=== PATIENT | male | born 1960 | race Caucasian/White ===

== ENCOUNTER 2024-01-03 07:42 | Inpatient (IN) ==
--- NOTE | 2023-12-23 12:36 | Anesthesiology Consultation ---
Date of Service December 23, 2023 Assessment & Plan (1) Encounter for pre-operative examination: Plan - check BSG am DOS. - Per supervisor agency appointments on 12/23/23: No known infectious disease contacts, current infectious disease symptoms in past 10 days or COVID positive test result in the past 30 days. Chart Review Chart Review: Acceptable Risk for Surgery and Patient NOT seen in Pre Admission Testing History Surgery Operation Date: 01/04/24 07:45 Proposed Procedures p L3-L5 Decompression and Fusion, Possible L2-L3; Hardware Removal L5-S1, With Spinal Cord Monitoring - Mario Briceño DO Height/Weight Height: 5 ft 9 in Weight: 92.079 kg Allergies Allergy/AdvReac Type Severity Reaction Status Date / Time codeine AdvReac Mild nausea Verified 12/23/23 11:54 metformin AdvReac Mild Diarrhea Verified 12/23/23 11:54 Medications Home Medications Medication Instructions Recorded Confirmed Last Taken atorvastatin 20 mg tablet 20 mg PO QA 06/23/22 12/23/23 10/18/23 empagliflozin 10 mg tablet 10 mg PO QA 06/23/22 12/23/23 10/17/23 (Jardiance) lisinopril 20 mg tablet 20 mg PO QA 06/23/22 12/23/23 10/18/23 omeprazole 20 mg tablet,delayed 20 mg PO QA 06/23/22 12/23/23 10/18/23 release sertraline 200 mg capsule 200 mg PO QA 06/23/22 12/23/23 10/19/23 09:00 turmeric 400 mg capsule 400 mg PO QA 06/23/22 12/23/23 10/18/23 insulin glargine U-300 conc 300 90 unit subcut QA 09/23/23 12/23/23 10/19/23 unit/mL (3 mL) subcutaneous pen (Toujeo Max U-300 SoloStar) tamsulosin 0.4 mg capsule (Flomax) 0.4 mg PO QPM 09/28/23 12/23/23 10/18/23 18:00 trazodone 50 mg tablet 50 mg PO HS PRN Sleep 12/23/23 12/23/23 Unknown Past Medical History Medical History (Updated 12/23/23 @ 12:32 by Abbi Bey PA-C) Anxiety mild BPH (benign prostatic hyperplasia) Chronic back pain DM type 2 (diabetes mellitus, type 2) IDDM GERD (gastroesophageal reflux disease) HLD (hyperlipidemia) Hypertension Nocturia Osteoarthritis Past Family History Family History Father Prostate cancer Diabetes Brother Prostate cancer Diabetes Other No family history of adverse response to anesthesia Past Surgical History Surgical History H/O bilateral inguinal hernia repair (10/20/23) Robotic Assisted Bilateral Laparoscopic Inguinal Hernia Repair(Bilateral) - Adelfo Read, , FACS History of back surgery History of colonoscopy History of esophagogastroduodenoscopy (EGD) History of surgical amputation of finger of left hand History of tonsillectomy Hx of arthroscopy of shoulder left Social History Smoking Status: Former smoker tobacco type: cigarettes Smoking cigarettes per day: occasional smoker -- once per month Do You Dip or Chew Tobacco: Yes (quit 5-6 years ago; advised) Smoking End Date: "years ago" Hx Alcohol Use: Yes alcohol intake frequency: holidays/special occasions only Hx Substance Use: No substance use type: does not use Lab Results Anesthesia Preop Results Results Anesthesia Widget: WBC 5.59 K/ul (4.8-10.8) 12/22/23 Hgb 14.0 g/dl (14.0-18.0) 12/22/23 Hct 44.1 % (42.0-52.0) 12/22/23 Plt 208 K/uL (130-400) 12/22/23 Na 141 mmol/L (136-145) 12/22/23 K 4.0 mmol/L (3.5-5.1) 12/22/23 Cl 109 mmol/L (98-107) H 12/22/23 CO2 25 mmol/L (21-32) 12/22/23 BUN 17 mg/dl (6-23) 12/22/23 Creat 0.92 mg/dl (0.6-1.4) 12/22/23 Glucose Level 97 mg/dl (70-99(Fasting)) 12/22/23 PT 10.5 Seconds (9.0-12.0) 12/22/23 PTT 28 Seconds (21-31) 12/22/23 INR 1.0 (0.9-1.1) 12/22/23 Urine Color Yellow 12/22/23 Urine Appearance Clear (Clear) 12/22/23 Urine pH 5.5 (4.5-7.5) 12/22/23 Urine Specific [place] 1.035 (1.000-1.030) H 12/22/23 Urine Protein Negative (Negative) 12/22/23 Urine Glucose (UA) 2+ (Negative) H 12/22/23 Urine Ketones Trace (Negative) H 12/22/23 Urine Blood Negative (Negative) 12/22/23 Urine Nitrite Negative (Negative) 12/22/23 Urine Bilirubin Negative (Negative) 12/22/23 Urine Urobilinogen Negative (Negative) 12/22/23 Urine Leukocyte Esterase Negative (Negative) 12/22/23 Blood Type A Positive 12/22/23 Antibody Screen NEGATIVE 12/22/23 Testing Electrocardiogram Date: 10/11/23 Sinus bradycardia, rate 59 bpm Chest X-Ray Date: 10/11/23 No acute chest disease.
[2024-01-03] MEDS: ACETAMINOPHEN 500 MG TAB PO SCH (08:14)
[2024-01-03] MEDS: GABAPENTIN 600 MG DOSE PO SCH (08:14)
[2024-01-03] MEDS: CeleBREX 200 MG CAP PO SCH (08:14)
[2024-01-03] MEDS: LR 60ML/HR IV SCH (08:15)
[2024-01-03] MEDS: LR 15ML/HR IV SCH (08:30)
[2024-01-03] MEDS ORDERED: PROPOFOL IV EMULSION 10 MG/ML 20 ML VIAL IV ONE (08:45)
[2024-01-03] MEDS ORDERED: ROCURONIUM BROMIDE 10 MG/ML 5 ML VIAL IV ONE (08:47)
[2024-01-03] MEDS ORDERED: LIDOCAINE 2% 2 ML VIAL/AMP(20MG/ML) INFIL ONE ×2 (08:47)
[2024-01-03] MEDS ORDERED: fentaNYL citrate PF 100 MCG/2 ML VIAL ONE ×2 (08:49→12:31)
[2024-01-03] MEDS ORDERED: MIDAZOLAM HCL 1 MG/ML 2ML VIAL ONE (08:50)
[2024-01-03] MEDS ORDERED: DEXAMETHASONE SOD INJ 4 MG/ML VIAL ONE (08:51)
[2024-01-03] MEDS ORDERED: ONDANSETRON INJ 2 MG/ML 2 ML VIAL ONE ×3 (08:51→12:14)
[2024-01-03] MEDS ORDERED: ATROPINE SULFATE 0.1 MG/ML 10ML SYR IV PRN (09:00)
[2024-01-03] MEDS ORDERED: ONDANSETRON INJ 2 MG/ML 2 ML VIAL IV PRN ×2 (09:00→15:17)
[2024-01-03] MEDS ORDERED: HYDROmorphone INJ 1 MG/ML SYRINGE IV PRN (09:00)
[2024-01-03] MEDS ORDERED: PROMETHAZINE HCL 6.25 MG in SODIUM CHLORIDE 0.9% 50 ML IV PRN (09:00)
[2024-01-03] MEDS ORDERED: ePHEDrine sulfate 50 MG/ML AMP IV PRN (09:00)
--- NOTE | 2024-01-03 09:01 | History & Physical Bridge Note ---
Date of Service January 03, 2024 History & Physical Bridge Note I have examined the patient, reviewed the History & Physical and in the interval since the performance of the History & Physical I have noted the following changes of clinical significance: no changes noted
--- NOTE | 2024-01-03 09:02 | History & Physical Report ---
Date of Service January 03, 2024 Assessment & Plan (1) Neurogenic claudication due to lumbar spinal stenosis: Plan: L3-L5 decompression and fusion, possible L2-L3, hardware removal L5-S1 History of Present Illness Chief Complaint: Back and leg pain Primary Care Provider: Jerry Cleveland MD This is a 63-year-old male who presents with chronic persistent back and leg pain after failing course of nonoperative care is here for surgical intervention. Allergies Allergy/AdvReac Type Severity Reaction Status Date / Time codeine AdvReac Mild nausea Verified 01/03/24 08:10 metformin AdvReac Mild Diarrhea Verified 01/03/24 08:10 Home Medications Medication Instructions Recorded Confirmed Type atorvastatin 20 mg tablet 20 mg PO QAM 06/23/22 01/03/24 History empagliflozin 10 mg tablet 10 mg PO QAM 06/23/22 01/03/24 History (Jardiance) lisinopril 20 mg tablet 20 mg PO QAM 06/23/22 01/03/24 History omeprazole 20 mg tablet,delayed 20 mg PO QAM 06/23/22 01/03/24 History release sertraline 200 mg capsule 200 mg PO QAM 06/23/22 01/03/24 History turmeric 400 mg capsule 400 mg PO QAM 06/23/22 01/03/24 History insulin glargine U-300 conc 300 90 unit subcut QAM 09/23/23 01/03/24 History unit/mL (3 mL) subcutaneous pen (Toujeo Max U-300 SoloStar) tamsulosin 0.4 mg capsule (Flomax) 0.4 mg PO QPM 09/28/23 01/03/24 History trazodone 50 mg tablet 50 mg PO HS PRN Sleep 12/23/23 01/03/24 History Past Med/Surg History Problem List (Updated 01/03/24 @ 09:02 by Mario Briceño DO) Neurogenic claudication due to lumbar spinal stenosis Bilateral inguinal hernia History of back problems Arthritis Right inguinal hernia Left inguinal hernia Right testicular pain entered into EMR 09/23/23 and last edited 09/28/23 Partial tear of rotator cuff Encounter for pre-operative examination Chronic back pain HTN (hypertension) Herniated nucleus pulposus, lumbar (Acute) Diabetes (Chronic) Medical History (Updated 01/03/24 @ 09:02 by Mario Briceño DO) Hypertension Chronic back pain Nocturia BPH (benign prostatic hyperplasia) Osteoarthritis Anxiety mild GERD (gastroesophageal reflux disease) DM type 2 (diabetes mellitus, type 2) IDDM HLD (hyperlipidemia) Surgical History H/O bilateral inguinal hernia repair (10/20/23) Robotic Assisted Bilateral Laparoscopic Inguinal Hernia Repair(Bilateral) - Adelfo Read DO, FACS Hx of arthroscopy of shoulder left History of tonsillectomy History of surgical amputation of finger of left hand History of back surgery History of esophagogastroduodenoscopy (EGD) History of colonoscopy Family History Father Prostate cancer Diabetes Brother Prostate cancer Diabetes Other No family history of adverse response to anesthesia Social History Smoking Status: Former smoker Tobacco Type: Cigarettes Cigarettes Per Day: occasional smoker -- once per month; Smoking End Date: "years ago"; Second Hand Exposure: No; Do You Dip or Chew Tobacco: Yes (quit 5-6 years ago; advised); Tobacco Cessation Education Requested by Patient: No Hx Alcohol Use: Yes Hx Substance Use: No Preferred Language: Lithuanian Communication Ability: Effective 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
[2024-01-03] MEDS: BUPIVACAINE/EPINEPHRINE 0.5% MPF 1:200,000 30 ML VIAL ONE (10:30)
[2024-01-03] MEDS: ceFAZolin 2000MG 2,000 MG/15 ML SYR IV SCH ×2 (10:30→18:00)
[2024-01-03] MEDS: ceFAZolin 330 MG/ML 1 GM VIAL ONE (10:31)
[2024-01-03] MEDS ORDERED: SUGAMMADEX SODIUM 200 MG/2 ML VIAL IV ONE ×2 (12:14→12:25)
--- NOTE | 2024-01-03 12:32 | Operative Report ---
Post Operative Report Pre & Post Diagnosis Operation Date: 01/03/24 09:35 Pre-Op Diagnosis: Lumbar spinal stenosis with neurogenic claudication Post-Op Diagnosis: Same I identified the patient and participated in the time-out.: Yes Procedure Operation Date: 01/03/24 09:35 Actual Procedures #1 removal of posterior instrumentation L5-S1. #2 exploration of fusion L5-S1. #3 lumbar decompression bilateral medial facetectomies and foraminotomies L2-3, L3-4 and L4-5. #4 posterior spinal fusion L2-L5. #5 placed posterior segmental instrumentation L2-L5. #6 interbody fusion L2-L3, L3-L4 and L4-L5. #7 placement of Spira 10 x 26 mm at L2-L3, 9 x 26 mm at L3-L4 and 13 x 26 mm x 2 at L4-L5. #8 placement locally harvested morselized autograft and posterior gutters. #9 placement infuse collagen sponge combined with Koros bone graft in the posterior lateral gutters and Morpheus bone graft interbody space. Surgeon Mario Briceño, Apron Man Josephine Lopez Estimated Blood Loss 550 Findings Consistent with Post-Op Diagnosis Specimens None Indications This is a 63-year-old male presents problems diagnosis of failed course of nonoperative care is here for surgical invention. Description of Procedure Patient was met with identified informed consent obtained. Patient was then taken to the operative suite underwent patient placed in a prone position on the Sarkis table on top of the David frame. All bony promises well-padded eyes inspected to ensure no external precipice spinal. This point the lumbar spine was prepped and draped in normal sterile fashion. Sharp dissection with the assistance of Bovie cautery was performed down to and exposing the lamina and transverse processes of L2-L3-L4 and the instrumentation L5 and S1 levels bilaterally. Numbers proceeded to move the end caps and rods at L5-S1 bilaterally. Was able to successfully move the L5 screws but unable to move the S1 screws second and bony overgrowth. Fusion mass was explored and noted to be mature and intact. Then performed a complete laminectomy of L4 including bilateral medial facetectomies and foraminotomies followed by complete laminectomy of L3 with bilateral medial facetectomies and foraminotomies and lastly laminectomy of L2 with bilateral medial facetectomies and foraminotomies addressing severe lateral recess and foraminal stenosis at all levels. Pedicle screws then placed at L2-L3 L4-5 bilaterally with assistance of fluoroscopy in the process son placed. By way of transforaminal approach on the left discectomy of L4 and L5 was performed endplates guarded to subcortical and bone and a 13 x 26 mm Spira cage filled with Morpheus bone graft tapped in position. Then proceeded to the right transforaminal region at L4-5. Again discectomy performed endplates guarded to subcortical bleeding bone and a second 13 x 26 mm spiral cage filled with Morpheus bone graft tapped in position. Then proceeded to L3-L4 by way of transforaminal approach and right a discectomy of L3-L4 was performed endplates guarded to subcortical and bone and a 9 x 26 mm spiral cage filled with Morpheus bone graft tapped in position. Lastly approached L2-L3 and by way of transforaminal approach on the right a complete discectomy of L2-L3 was performed endplates guarded to subcortical mean bone and 10 x 26 mm spiral cage filled with Morpheus bone graft tapped in position. The rods were then locked in final position bilaterally. The transverse processes of L2 L3-L4-L5 burred to subcortical bleeding bone. Infuse collagen sponge combined with Koros bone graft and locally harvested morselized autograft was placed in the posterior gutters. 15 round HAILEE drain inserted. The incision was then closed with 1 Vicryl in the fascia 2-0 Vicryl subcutaneously and 4 Monocryl for final skin closure. Steri-Strips sterile dressing placed. Patient waken taken to PACU in stable condition. Please note spinal cord monitoring utilized at the procedure no changes noted. Janet Lopez was present at the entire surgery and while the patient positioning complex portion of the surgery and final skin closure. I attest to the content of the Intraoperative Record and any orders documented therein. Any exceptions are noted below.
--- NOTE | 2024-01-03 13:20 | Anesthesiology Progress Note ---
Date of Service January 03, 2024 Anesthesia Post Procedure Vital Signs Vital Signs: Temp Pulse Pulse Resp BP Pulse Ox O2 Del Method 01/03/24 13:10 100 H 21 108/75 94 Room Air 01/03/24 13:00 98 H 18 122/81 95 Room Air 01/03/24 12:50 92 H 15 114/94 99 Oxymask 01/03/24 12:43 36.7 C 88 16 124/74 99 Oxymask 01/03/24 08:05 37 C 65 20 147/80 H 97 Room Air O2 Flow Rate 01/03/24 13:10 01/03/24 13:00 01/03/24 12:50 7 01/03/24 12:43 7 01/03/24 08:05 Pain Intensity Right Lower Back: Pain Intensity: 8 Transfer of Care Handoff Completed per policy Notes Mental Status: alert / awake / arousable and participated in evaluation Patient Amnestic to Procedure: Yes Nausea / Vomiting: adequately controlled Pain: adequately controlled Airway Patency, RR, SpO2: stable & adequate BP & HR: stable & adequate Hydration State: stable & adequate Anesthetic Complications: no major complications apparent and Pt Satisfied with anesthetic care
--- NOTE | 2024-01-03 13:35 | Fluoroscopy Report ---
[place] lumbar spine 2-3V CLINICAL HISTORY: L3-L5 DECOMP/FUSION COMPARISON STUDY: Lumbar spine radiographs May 16, 2015. Lumbar spine MRI July 07, 2023. FLUOROSCOPY TIME: 24.3 seconds. FLUOROSCOPIC IMAGES: 2 FINDINGS: Fluoroscopy was provided removal of posterior instrumentation at L5-S1. Posterior decompres nida was noted with interval L2-L3, L3-L4 and L4-L5 discectomies with interbody spacer placement. Evelio ateral pedicle screw fusion extends from L2 through S1. IMPRESSION: Fluoroscopy provided during interval decompression and fusion, as described above. ACT 112: Negative or not required by law. Electronically signed by: Thang Oakes M.D. 01/03/2024 1:34 PM
[2024-01-03] MEDS: fentaNYL citrate PF 100 MCG/2 ML VIAL IV PRN (13:58)
[2024-01-03] MEDS ORDERED: NALOXONE HCL 0.4 MG/1 ML VIAL/CARP IV PRN (15:17)
[2024-01-03] MEDS ORDERED: bisacodyL 10 MG SUPP PR PRN (15:17)
[2024-01-03] MEDS ORDERED: PHARMACY GLYCEMIC MGMT CONSULT PRN (15:17)
[2024-01-03] MEDS ORDERED: ACETAMINOPHEN 500 MG TAB PO PRN (15:17)
[2024-01-03] MEDS ORDERED: METOCLOPRAMIDE HCL INJ 5 MG/ML 2 ML VIAL IV PRN (15:17)
[2024-01-03] MEDS ORDERED: MAGNESIUM HYDROXIDE SUSP 30 ML UDC PO PRN (15:17)
[2024-01-03] MEDS ORDERED: LORazepam 0.5 MG TAB PO PRN (15:17)
[2024-01-03] MEDS ORDERED: DO NOT ADMINISTER FLU VACCINE PRN (15:17)
[2024-01-03] MEDS ORDERED: FAMOTIDINE 20 MG TAB PO PRN (15:17)
[2024-01-03] MEDS ORDERED: LORazepam 0.5 MG in SYRINGE 0.25 ML IV PRN (15:17)
[2024-01-03] MEDS ORDERED: hydrOXYzine HCl 25 MG TAB PO PRN (15:17)
[2024-01-03] MEDS ORDERED: ACETAMINOPHEN 1,000 MG/100 ML VIAL IV PRN (15:17)
[2024-01-03] MEDS ORDERED: HYDROmorphone INJ 0.5 MG/0.5 ML SYR IV PRN (15:17)
[2024-01-03] MEDS ORDERED: diphenhydrAMINE Capsule 25 MG CAP PO PRN (15:17)
[2024-01-03] MEDS ORDERED: ALUMINUM/MAGNESIUM SUSP 30 ML UDC PO PRN (15:17)
[2024-01-03] MEDS ORDERED: DO NOT ADMINISTER PNEUMOCOCCAL VACCINE PRN (15:17)
[2024-01-03] MEDS ORDERED: PROMETHAZINE HCL 12.5 MG in SODIUM CHLORIDE 0.9% 50 ML IV PRN (15:17)
[2024-01-03] MEDS ORDERED: traMADol HCL 50 MG TABLET PO PRN (15:17)
[2024-01-03] MEDS ORDERED: traZODone HCL 50 MG TAB PO PRN (15:17)
[2024-01-03] MEDS ORDERED: SOD PHOSPHATE/SOD BIPHOSPHATE ENEMA 132 ML BTL PR PRN (15:17)
[2024-01-03] MEDS ORDERED: ONDANSETRON 4 MG OD TAB PO PRN (15:17)
[2024-01-03] MEDS: FLOSEAL HEMOSTATIC MATRIX 10ML TOP ONE (15:18)
[2024-01-03] MEDS: SODIUM CHLORIDE 0.9% 1,000 ML IV SCH (15:29)
[2024-01-03] MEDS ORDERED: GLUCOSE 40% GEL 15 GM TUBE PO PRN (15:45)
[2024-01-03] MEDS ORDERED: GLUCAGON FOR INJ 1 MG VIAL IM PRN (15:45)
[2024-01-03] MEDS ORDERED: GLUCOSE 10 TAB/TUBE PO PRN (15:45)
[2024-01-03] MEDS ORDERED: CARBOHYDRATES FOR HYPOGLYCEMIA PO PRN (15:45)
[2024-01-03] MEDS ORDERED: DEXTROSE 50% 50 ML SYRINGE IV PRN (15:45)
[2024-01-03] MEDS: HYDROmorphone INJ 1 MG/ML SYRINGE IV PRN (16:03)
--- NOTE | 2024-01-03 17:32 | Hospitalist Consultation ---
Date of Consultation January 03, 2024 Assessment & Plan (1) Neurogenic claudication due to lumbar spinal stenosis: Patient underwent removal of posterior instrumentation L5-S1, exploration of fusion L5-S1, lumbar decompression b/l medical facetectomies & foraminotomies L2-3, L3-4, L4-5, posterior spinal fusion L2-L5, placement of posterior segmental instrumentation L2-L5, interbody fusion L2-L3, L3-L4, L4-L5, placement of Spira [id number], 9x26mm, at L3-L4 and 73x94tl x 2 at L4-L5. He is feeling well following surgery -Dilaudid Q3H prn; tramadol Q4h prn for pain -Wean off nasal cannula as tolerated to baseline of room air -Advance diet as tolerated -PT consult (2) HTN (hypertension): Chronic/Stable -Continue Lisinopril 20mg daily (3) DM type 2 (diabetes mellitus, type 2): Patient NPO majority of day and given clear liquid diet for dinner. -Advance diet to Type 2 Carb Consistent -Will check Hgb A1c -On Jardiance outpatient -Will resume Lantus 01/03 -SSI with goal of 110-140, Correction factor 20, Carb ratio 6 -BSG ACHS Plan Diet: type 2 diabetes/carb consistent Code status: full code Disposition: surgical services Chronic conditions: -Atorvastatin 20mg daily for hyperlipidemia -Pantoprazole 40mg daily for GERD -Sertraline 200mg daily for anxiety/depression -Tamsulosin 0.4mg daily for urinary symptoms Supervising Physician Co-Signing Physician Notes During face to face encounter, I obtained a history and physical examination, discussed plan of care with patient and answered any questions. I discussed plan of care with GIANCARLO Yancey. I reviewed above note and agree with it except for the following: Patient was consulted for medical management. Will resume home meds for hypertension. DVT prophylaxis per primary service. History of Present Illness Reason for Consultation: Patient was seen this evening at bedside with present. Patient reports to be feeling well following his surgery with Dr. Briceño earlier today. He reports no chest pain, shortness of breath, abdominal pain. Sharma catheter is in place. He reports no BM's since surgery yet. He is on 2L of nasal canal at time of encounter but feels he does not need this and it is causing irritation to his nose. He was on clear liquid diet at time of encounter and per nursing staff he is to advance as tolerated. Attending Physician: Mario Briceño DO History of Present Illness This is a 63 year old male with past medical history Allergies Allergy/AdvReac Type Severity Reaction Status Date / Time codeine AdvReac Mild nausea Verified 01/03/24 08:10 metformin AdvReac Mild Diarrhea Verified 01/03/24 08:10 Home Medications Medication Instructions Recorded Confirmed Type atorvastatin 20 mg tablet 20 mg PO QAM 06/23/22 01/03/24 History empagliflozin 10 mg tablet 10 mg PO QAM 06/23/22 01/03/24 History (Jardiance) lisinopril 20 mg tablet 20 mg PO QAM 06/23/22 01/03/24 History omeprazole 20 mg tablet,delayed 20 mg PO QAM 06/23/22 01/03/24 History release sertraline 200 mg capsule 200 mg PO QAM 06/23/22 01/03/24 History turmeric 400 mg capsule 400 mg PO QAM 06/23/22 01/03/24 History insulin glargine U-300 conc 300 90 unit subcut QAM 09/23/23 01/03/24 History unit/mL (3 mL) subcutaneous pen (Toujeo Max U-300 SoloStar) tamsulosin 0.4 mg capsule (Flomax) 0.4 mg PO QPM 09/28/23 01/03/24 History trazodone 50 mg tablet 50 mg PO HS PRN Sleep 12/23/23 01/03/24 History oxycodone 5 mg tablet 5 mg PO Q6H PRN pain #30 tabs 01/04/24 Rx tramadol 50 mg tablet 50 mg PO Q6H PRN pain, moderate 01/04/24 Rx #30 tabs Patient History Medical History (Updated 01/03/24 @ 17:56 by Paula Yancey PA-C) Hypertension Chronic back pain Nocturia BPH (benign prostatic hyperplasia) Osteoarthritis Anxiety mild GERD (gastroesophageal reflux disease) DM type 2 (diabetes mellitus, type 2) IDDM HLD (hyperlipidemia) Surgical History H/O bilateral inguinal hernia repair (10/20/23) Robotic Assisted Bilateral Laparoscopic Inguinal Hernia Repair(Bilateral) - Adelfo Read, DO, FACS Hx of arthroscopy of shoulder left History of tonsillectomy History of surgical amputation of finger of left hand History of back surgery History of esophagogastroduodenoscopy (EGD) History of colonoscopy Family History Father Prostate cancer Diabetes Brother Prostate cancer Diabetes Other No family history of adverse response to anesthesia Social History Smoking Status: Former smoker Tobacco Type: Cigarettes Cigarettes Per Day: occasional smoker -- once per month; Smoking End Date: "years ago"; Second Hand Exposure: No; Do You Dip or Chew Tobacco: Yes (quit 5-6 years ago; advised); Tobacco Cessation Education Requested by Patient: No Hx Alcohol Use: Yes Hx Substance Use: No Preferred Language: Sami Communication Ability: Effective 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 Beliefs That Will Affect Care: None marital status: Current Living Situation: Spouse How many Children do You have: 3 Other Information That Helps Us Care for You: No Feels Safe at Home: Yes Safety Concerns: Feels Safe At This Time Diet: diabetic during the past year weight has: remained stable Assistive Devices: None Review of Systems Constitutional: no fever Eyes: no blind spots Ear, Nose, Mouth, Throat: no ear pain Respiratory: no cough Cardiovascular: no chest pain Gastrointestinal: no abdominal pain Genitourinary: no dysuria Integumentary: no acne Neurologic: no gait abnormality Psychiatric: no behavioral changes Endocrine: no fatigue Hematologic / Lymphatic: no easy bleeding Allergy / Immunological: no GI upset with certain foods Physical Exam Constitutional: WD/WN, vitals as above Eyes: PERRL, conjunctivae normal, anicteric sclerae Respiratory: normal respiratory effort, lungs clear to auscultation Cardiovascular: RRR, no murmur, no edema Gastrointestinal (Abdomen): normal bowel sounds, soft, nontender, no hepatosplenomegaly Neurologic: PERRL, EOMI, accommodation nl, no face palsy, no dysarthria Psychiatric: A+Ox3, euthymic affect Results & Data Results & Data Vital Signs (Past 12 Hours) Vital Signs Temp Pulse Pulse Resp BP Pulse Ox O2 Del Method 01/03/24 16:42 78 18 103/68 95 Nasal Cannula 01/03/24 15:40 79 18 125/74 96 Room Air 01/03/24 15:10 36.5 C 69 18 120/77 97 Nasal Cannula 01/03/24 14:40 36.5 C 84 16 112/68 93 Nasal Cannula 01/03/24 14:40 Nasal Cannula 01/03/24 14:15 79 12 108/59 L 93 Nasal Cannula 01/03/24 14:00 80 18 116/66 98 Nasal Cannula 01/03/24 13:45 36.4 C L 82 13 108/59 L 94 Nasal Cannula 01/03/24 13:30 86 12 112/60 92 Room Air 01/03/24 13:20 92 H 17 113/65 93 Room Air 01/03/24 13:10 100 H 21 108/75 94 Room Air 01/03/24 13:00 98 H 18 122/81 95 Room Air 01/03/24 12:50 92 H 15 114/94 99 Oxymask 01/03/24 12:43 36.7 C 88 16 124/74 99 Oxymask 01/03/24 08:05 37 C 65 20 147/80 H 97 Room Air O2 Flow Rate 01/03/24 16:42 2 01/03/24 15:40 01/03/24 15:10 2 01/03/24 14:40 2 01/03/24 14:40 2 01/03/24 14:15 2 01/03/24 14:00 2 01/03/24 13:45 2 01/03/24 13:30 01/03/24 13:20 01/03/24 13:10 01/03/24 13:00 01/03/24 12:50 7 01/03/24 12:43 7 01/03/24 08:05 Diagnostic Findings Lumbar Spine X-Ray 01/03/24 00:00 IMPRESSION: Fluoroscopy provided during interval decompression and fusion, as described above. Electronically signed by: Thang Oakes M.D. 01/03/2024 1:34 PM PG Care Time/CCT Total # of Minutes Spent Total Time Spent with Patient: Total time spent is greater than 50% in coordination of care (as documented) at patient's floor/unit and/or counseling patient: Coding Level of Care Code 80621 IN/OBS CONSULT LVL 3,45M Diagnoses Neurogenic claudication due to lumbar spinal stenosis M48.062 Primary hypertension I10 Hypertension type: primary hypertension Type 2 diabetes mellitus without complication, with long-term current use of insulin E11.9; Z79.4 Diabetes mellitus complication status: without complication Diabetes mellitus assisted insulin use: with assisted use (2) HTN (hypertension) Hypertension type: primary hypertension Qualified Code(s): I10 - Essential (primary) hypertension (3) DM type 2 (diabetes mellitus, type 2) Diabetes mellitus complication status: without complication Diabetes mellitus assisted insulin use: with assisted use Qualified Code(s): E11.9 - Type 2 diabetes mellitus without complications; 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
[2024-01-03] MEDS: INSULIN ASPART PER UNIT CHARGE SC SCH ×2 (17:37→23:42)
[2024-01-03] MEDS: TAMSULOSIN HCL 0.4 MG CAP PO SCH (20:24)
[2024-01-03] MEDS: DOCUSATE SODIUM/SENNA 50/8.6MG TAB PO SCH (20:24)
[2024-01-03] MEDS: LANTUS PER UNIT CHARGE SC SCH (21:15)
[2024-01-04] MEDS: POLYETHYLENE (MIRALAX) 17 GM PACK PO SCH (05:48)
[2024-01-04 07:21] LABS: Basophils # (auto) 0.02 K/uL (0.00-0.20); Basophils % (auto) 0.2 %; Eosinophils # (auto) 0.02 K/uL (0.00-0.50); Eosinophils % (auto) 0.2 %; Hematocrit (blood only) 35.1 % (42.0-52.0); Hemoglobin 11.3 g/dl (14.0-18.0); Immature Granulocytes # (auto) 0.05 K/uL (0.01-0.20); Immature Granulocytes % (auto) 0.4 %; Lymphocytes # (auto) 0.87 K/uL (1.20-3.40); Lymphocytes % (auto) 7.2 %; Mean Corpuscular Hemoglobin 27.7 pg (25.0-34.0); Mean Corpuscular Hgb Conc 32.2 g/dL (32.0-36.0); Mean Platelet Volume 9.3 fL (9.4-12.4); Monocytes # (auto) 1.24 K/uL (0.11-0.59); Monocytes % (auto) 10.3 %; Neutrophils # (auto) 9.81 K/uL (1.40-6.50); Neutrophils % (auto) 81.7 %; Platelet Count 218 K/uL (130-400); RDW Coefficient of Variation 13.4 % (11.5-14.5); RDW Standard Deviation 42.1 fL (36.4-46.3); Red Blood Count 4.08 M/uL (4.70-6.10); White Blood Count 12.01 K/ul (4.8-10.8)
[2024-01-04 07:33] LABS: BUN Creatinine Ratio 17.7 (10-20); Calcium 8.6 mg/dl (8.6-10.3); Creatinine Clr Calc Pharmacy 105.9 ml/min; Est GFR (African American) 110.8 ml/min; Est GFR (Non-African American) 95.6 ml/min; Potassium 4.1 mmol/L (3.5-5.1)
[2024-01-04] MEDS: dexAMETHasone 6 MG in SYRINGE 0 ML IV SCH (07:49)
[2024-01-04] MEDS: lisinopril 20 MG TAB PO SCH (08:06)
[2024-01-04] MEDS: PANTOprazole 40 MG TAB PO SCH (08:06)
[2024-01-04] MEDS: ATORVASTATIN 20 MG TAB PO SCH (08:06)
[2024-01-04] MEDS: SERTRALINE HCL 100 MG TABLET PO SCH (08:06)
[2024-01-04] MEDS: oxyCODONE HCL IR 5 MG TAB (IMMEDIATE RELEASE) PO PRN (08:06)
[2024-01-04] MEDS: LANTUS PER UNIT CHARGE SC SCH (08:14)
[2024-01-04 08:38] LABS: Estimated Average Glucose 154 mg/dl
[2024-01-04] MEDS ORDERED: EMPAGLIFLOZIN 10 MG TAB PO SCH (09:00)
--- NOTE | 2024-01-04 10:00 | Orthopedic Progress Note ---
Date of Service January 04, 2024 Assessment & Plan (1) Neurogenic claudication due to lumbar spinal stenosis: Plan: This time we will continue physical therapy monitor his HAILEE output hopefully discharge home in the next few days. Admission and Anticipated Discharge Date Admission Date: January 03, 2024 Subjective Patient's back pain is controlled leg pain markedly improved Physical Exam Physical Exam: Patient appears comfortable. Discussed when to testing. Results & Data Vital Signs (Past 12 Hours) Vital Signs Temp Pulse Resp BP BP Pulse Ox O2 Del Method 01/04/24 07:29 37.3 C 95 H 16 127/71 94 Room Air 01/04/24 02:48 36.9 C 75 18 116/70 94 Room Air 01/03/24 23:00 36.8 C 79 18 122/71 94 Room Air Queries Orthopedic Spine Acute Posthemorrhagic Anemia: Yes
--- NOTE | 2024-01-04 11:13 | Hospitalist Progress Note ---
Date of Service January 04, 2024 Assessment & Plan (1) Neurogenic claudication due to lumbar spinal stenosis: Plan: Patient underwent removal of posterior instrumentation L5-S1, exploration of fusion L5-S1, lumbar decompression b/l medical facetectomies & foraminotomies L2-3, L3-4, L4-5, posterior spinal fusion L2-L5, placement of posterior segmental instrumentation L2-L5, interbody fusion L2-L3, L3-L4, L4-L5, placement of Spira [id number], 9x26mm, at L3-L4 and [id number] x 2 at L4-L5. He is feeling well following surgery -Dilaudid Q3H prn; tramadol Q4h prn for pain -On room air, denied SOB -On Carb consistent/ T2 DM diet -PT consult reviewed - recommending home discharge (2) HTN (hypertension): Plan: Chronic/Stable -Continue Lisinopril 20mg daily (3) DM type 2 (diabetes mellitus, type 2): Plan: Patient resumed his diet as tolerated. -Advance diet to Type 2 Carb Consistent -Reviewed hemoglobin A1c 01/03:7 -On Jardiance outpatient -Continue Lantus -SSI with goal of 110-140, Correction factor 20, Carb ratio 6 -BSG ACHS Plan DVT prophylaxis: SCD's Diet: type 2 diabetes/carb consistent Code status: full code Disposition: surgical services -possible discharge 01/04 pending patients ambulation status. Chronic conditions: -Atorvastatin 20mg daily for hyperlipidemia -Pantoprazole 40mg daily for GERD -Sertraline 200mg daily for anxiety/depression -Tamsulosin 0.4mg daily for urinary symptoms Admission and Anticipated Discharge Date Admission Date: January 03, 2024 Subjective Patient seen and examined this morning at bedside. Patient reports to be feeling well. He had his mariscal removed today and feels like he is going to have a BM soon. Patient states he is hopeful to be discharged tomorrow pending his ambulating status. He is able to ambulate in his room and is going to try stairs tomorrow. He denied chest pain, shortness of breath. He is tolerating his diet well. Results & Data Results & Data Vital Signs (Past 12 Hours) Vital Signs Temp Pulse Resp BP BP Pulse Ox O2 Del Method 01/04/24 07:29 37.3 C 95 H 16 127/71 94 Room Air 01/04/24 02:48 36.9 C 75 18 116/70 94 Room Air PG Care Time/CCT Total # of Minutes Spent Total Time Spent with Patient: Total time spent is greater than 50% in coordination of care (as documented) at patient's floor/unit and/or counseling patient: Coding Level of Care Code 05295 SUB INP/OBS CARE 2/35MIN Diagnoses Neurogenic claudication due to lumbar spinal stenosis M48.062 Primary hypertension I10 Hypertension type: primary hypertension Type 2 diabetes mellitus without complication, with long-term current use of insulin E11.9; Z79.4 Diabetes mellitus complication status: without complication Diabetes mellitus moth exterminator insulin use: with detention use (2) HTN (hypertension) Hypertension type: primary hypertension Qualified Code(s): I10 - Essential (primary) hypertension (3) DM type 2 (diabetes mellitus, type 2) Diabetes mellitus complication status: without complication Diabetes mellitus moth exterminator insulin use: with moth exterminator use Qualified Code(s): E11.9 - Type 2 diabetes mellitus without complications; Z79.4 - terminal carman (current) use of insulin
--- NOTE | 2024-01-04 13:56 | Pharmacy Report ---
Pharmacy Glycemic Short Note 2 - Date of Service January 04, 2024 - Glycemic Short BSG Results (Last 24 hours): 01/03/24 01/03/24 01/03/24 16:43 21:06 23:34 Glucose POC Glucose 121 H 151 H 113 H 01/04/24 01/04/24 01/04/24 03:10 06:34 07:32 Glucose 144 H POC Glucose 138 H 140 H 01/04/24 11:20 Glucose POC Glucose 175 H OUTPATIENT ANTIDIABETIC REGIMEN: * Lantus 90 units Qam, Jardiance 10 mg daily ASSESSMENT: * 63 year old now s/p surgery, POD 1 - pharmacy consulted yesterday evening for glycemic control. Received total of ~50 units of insulin yesterday, of which 45 units were basal insulin. * Fasting BSG 140 mg/dL - reasonable to continue with same basal insulin, likely will need to titrate up once PO intake improves further. Patient also on IV dexamethasone, will continue with tighter parameters for novolog. PLAN FOR INPATIENT GLYCEMIC CONTROL: * Hold outpatient oral diabetes medications * Basal insulin * Lantus 45 units SQ daily * Bolus insulin * NovoLog per scale ACHS or Q6hrs while NPO * Goal Range: Low 110 mg/dL - High 140 mg/dL * Correction Factor: 20 mg/dL/unit * Nutritional / Prandial insulin per carb ratio of 1 unit per 6 grams CHO consumed
[2024-01-05 07:16] LABS: BUN Creatinine Ratio 19.3 (10-20); Calcium 8.8 mg/dl (8.6-10.3); Creatinine Clr Calc Pharmacy 95.1 ml/min; Est GFR (Non-African American) 91.4 ml/min
[2024-01-05 07:18] LABS: Hematocrit (blood only) 27.7 % (42.0-52.0); Mean Corpuscular Hgb Conc 32.5 g/dL (32.0-36.0); Mean Corpuscular Volume 83.2 fL (80.0-100.0); Mean Platelet Volume 9.3 fL (9.4-12.4); Platelet Count 185 K/uL (130-400); RDW Coefficient of Variation 13.3 % (11.5-14.5); RDW Standard Deviation 40.6 fL (36.4-46.3); Red Blood Count 3.33 M/uL (4.70-6.10); White Blood Count 10.18 K/ul (4.8-10.8)
--- NOTE | 2024-01-05 08:36 | Discharge Summary ---
Date of Service January 05, 2024 Admission HPI Per Admitting Provider This is a 63-year-old male who presents with chronic persistent back and leg pain after failing course of nonoperative care is here for surgical intervention. Admission Exam (Per Admitting) Constitutional WD/WN, vitals as above Eyes normal visual castanon by confrontation ENMT external ear and nose normal, oropharynx normal Neck normal visual inspection Respiratory normal respiratory effort Cardiovascular Extremities: normal capillary refill Gastrointestinal (Abdomen) Inspection/Auscultation: abdomen normal to inspection Musculoskeletal Spine: + pain with thoraco-lumbar ROM Extremities: extremities normal to inspection and strength 5/5 throughout Gait: normal gait Skin no rashes, warm and dry Neurologic normal touch/pain/proprioception and moves all extremities Psychiatric A+Ox3, euthymic affect Eye Contact: good eye contact Discharge Data Consultations 01/03/24 15:17 Consult Hospitalist Routine Procedures Performed Operation Date: 01/03/24 09:35 Actual Procedures p L2-L5 Decompression and Fusion, Spinal Cord Monitoring(Not Applicable) - Mario Briceño DO s L5-S1 Hardware Removal, (Not Applicable) - Mario Briceño DO Hospital Course (1) Neurogenic claudication due to lumbar spinal stenosis: George is being discharged home on postoperative day 2 status post hard removal L5-S1, decompression L2-5 with instrumented fusion L2-S1. He has had an uneventful postoperative hospital course. Lab values stable. He is making progress in physical therapy and ambulating the hallways with a walker. He has had a bowel movement. He is going to be discharged home with his HAILEE drain intact due to high output. He states he had a similar event with his first surgery and removed it at home by himself. Discharge Instructions ACTIVITY RECOMMENDATIONS: SELF CARE INSTRUCTIONS AFTER THORACIC/LUMBAR FUSIONS 1. You may walk to your tolerance. It is good exercise for your legs and back. Expect some back and intermittent leg aches and pains. 2. You may perform "counter-top" level activities (make a sandwich, kat with a project, etc.). 3. No bending or lifting of more than 10 pounds or back twisting of any nature (roll like a log when turning in bed). 4. You may ride in a car for 20-30 minutes at a time. No driving until after your first visit with your doctor. 5. Frequent changes of position and restricting sitting to 30 minutes at a time will help limit the amount of back spasms and stiffness you may experience. 6. You may discontinue the use of ambulatory aids (cane, crutches, etc.) once your strength and confidence allow. 7. You may reed or wind instrument tuner the shower and let water strike your incision when you arrive home at least once daily. Do not take a tub bath, sit in a hot tub or go into a swimming pool until after your first recheck in the office. SPECIAL CARE INSTRUCTIONS: VERY IMPORTANT TO READ AND REVIEW A. Your surgical incision has been closed with a cosmetic suture under the skin that will dissolve in about 6 weeks. In 14 days, you can use a pair of clean scissors and cut the suture that is left outside of the skin at the ends of your incision. 1. The small skin tapes can be removed 7 days after surgery if they have not fallen off by that point. 2. You may keep the wound open to air as much as possible to promote healing after post-op day number 5 unless told otherwise by your doctor. 3. If you think the wound looks like it is becoming infected (redness or worsening drainage) and/or you are experiencing fever, chill or worsening back pain and muscle spasms, contact the office so that we may evaluate you as soon as possible. B. Complications are uncommon, but please contact us if you have any signs or symptoms of: 1. wound infection (fever higher than 102.5 degrees F, redness, separation of wound, drainage, or increasing pain from the incision) 2. blood clots in legs (pain, swelling, redness and warmth in legs) 3. urinary tract infection (fever higher than 102.5 degrees F, burning upon urination or increased frequency of urination) 4. nerve problems (inability to walk on your toes or heels, numbness, loss of bowel or bladder control) 5. any other symptoms that concern you C. Please call the office at if you have any concerns or questions about your operation or recovery. D. No smoking! Smoking drastically decreases the chance of a solid fusion. E. Do not take any anti-inflammatory medications (Indocin, Advil, Motrin, Aspirin, Naprosyn, etc.) as these may inhibit the chance of a solid fusion. Tylenol is okay to take for pain. MANAGING PAIN AFTER SPINAL SURGERY 1. Narcotic medication is intended for short-term use and will be provided for surgical pain. Surgical pain usually lasts for a period of 4-6 weeks. Narcotic medication includes Percocet, Vicodin, Darvocet, Tylenol #3 or Lortab. 2. Longer-term pain is more appropriately treated with non-narcotic medication such as Tylenol ES. 3. Muscle spasm is not appropriately treated with narcotics. Muscle relaxers such as Soma, Flexeril or Skelaxin can be used along with Tylenol ES. 4. Remember that we all live with some "aches and pains". This is not unusual or uncommon after an injury or as we get older. a. Back pain is expected and may include muscle spasms for 4 to 6 weeks after surgery. The pain should gradually improve. If the pain worsens for no apparent reason, please contact the office. b. Intermittent leg pain may also be experienced and should not be concerned about unless it worsens for no apparent reason. If so, please contact the office. 5. We will provide appropriate medication within the normal guidelines of their prescribed use. We will also be very cautious and aware of potential abuse and extended duration of patients' medication needs. a. Pain medications are for your comfort and to assist with sleep and rest so that the tissue can heal. They are not provided in order to return to normal activity and should not be used through the day. To do so or worsening pain at night can result from ongoing tissue damage and development of tolerance to the prescribed medicine. 6. Please allow 2-3 days to process refills. Prescriptions will not be mailed but must be picked up at the office. FOLLOW UP VISIT: Keep your scheduled follow-up appointment. Any questions, please call the office at .
== END 2024-01-05 11:48 | disposition home or self-care (01) | DRG 455 ==
LOC: ASU 07:42 → 3N 12:36